=== PATIENT | male | born 1955 | race African-American/Black ===

== ENCOUNTER 2017-07-14 13:02 | Emergency (ER) | payer SELFPAY ==
[~2017-07-14] VITALS: Ht 180.3 cm; Wt 138.5 kg
[2017-07-14 13:14] VITALS: BP 181/82; PULSE 87; RESP 24; TEMP 98.2; O2SAT 96
[2017-07-14] MEDS ORDERED: TETANUS/DIPHTHERIA TOXOID ADULT 0.5 ML VIAL IM ONE (13:45)
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
[2017-07-14 13:52] LABS: AUTOMATED NEUTROPHIL # 3.3 TH/MM3 (1.8-7.7); BASOPHIL # 0.1 TH/MM3 (0-0.2); BASOPHIL % 0.9 % (0.0-2.0); EOSINOPHIL # 0.4 TH/MM3 (0-0.4); EOSINOPHIL % 5.7 % (0.0-4.0); HEMATOCRIT 42.1 % (39.0-51.0); HEMOGLOBIN 14.2 GM/DL (13.0-17.0); LYMPH % 38.1 % (9.0-44.0); LYMPHOCYTE # 2.7 TH/MM3 (1.0-4.8); MEAN CORPUSCULAR HEMOGLOBIN 29.6 PG (27.0-34.0); MEAN CORPUSCULAR HGB CONC 33.7 % (32.0-36.0); MEAN PLATELET VOLUME 8.4 FL (7.0-11.0); MONO % 8.2 % (0.0-8.0); MONOCYTE # 0.6 TH/MM3 (0-0.9); NEUT % 47.1 % (16.0-70.0); PLATELET COUNT 255 TH/MM3 (150-450); RED BLOOD COUNT 4.79 MIL/MM3 (4.50-5.90); RED CELL DISTRIBUTION WIDTH 14.5 % (11.6-17.2)
[2017-07-14 14:07] LABS: BICARBONATE 26.2 MEQ/L (21.0-32.0); CALCIUM 8.8 MG/DL (8.5-10.1); CREATININE 1.03 MG/DL (0.60-1.30)
--- NOTE | 2017-07-14 14:14 | RADRPT ---
EXAM DATE/TIME: 07/14/2017 13:49 [facility] COMPARISON: No previous studies available for comparison. INDICATIONS : Left femur pain. MEDICAL HISTORY : None. SURGICAL HISTORY : None. ENCOUNTER: Initial ACUITY: 1 week PAIN SCORE: 8/10 LOCATION: Left femur. FINDINGS: Two view examination of the left femur demonstrates no evidence of fracture or dislocation. Bony min eralization is normal. The soft tissue structures are intact. CONCLUSION: No fracture. Carrillo Hayden MD on July 14, 2017 at 14:11 Board Certified Radiologist. This report was verified electronically.
--- NOTE | 2017-07-14 14:16 | RADRPT ---
EXAM DATE/TIME: 07/14/2017 13:55 [facility] COMPARISON: No previous studies available for comparison. INDICATIONS : Left foot pain and open sore. MEDICAL HISTORY : None. SURGICAL HISTORY : None. ENCOUNTER: Initial ACUITY: 1 week PAIN SCORE: 5/10 LOCATION: Left foot. FINDINGS: Three view examination of the left foot demonstrates no dislocation, or fracture. Mild, diffuse sof t tissue prominence The tarsal bones appear intact. The interphalangeal and metatarsophalangeal join ts are intact. The calcaneus is intact with a small calcaneal spur at the plantar aponeurosis. Bony mineralization is normal. CONCLUSION: 1. Soft tissue swelling with no fracture. 2. Small calcaneal spur at the plantar aponeurosis. Carrillo Hayden MD on July 14, 2017 at 14:12 Board Certified Radiologist. This report was verified electronically.
[2017-07-14] MEDS ORDERED: SSD1CRE TOPICAL (14:25)
[2017-07-14] MEDS ORDERED: BACT800T5 PO (14:25)
[2017-07-14] MEDS ORDERED: CEPH-460 PO (14:25)
[2017-07-14] MEDS ORDERED: SULFAMETHOXAZOLE-TRIMETHOPRIM DS 800-160 MG TAB PO ONE (14:30)
[2017-07-14] MEDS ORDERED: SILVER SULFADIAZINE 1% CR 50 GM JAR TOPICAL ONE (14:30)
[2017-07-14] MEDS ORDERED: CEPHALEXIN MONOHYDRATE 500 MG CAP PO ONE (14:30)
[2017-07-14 15:01] VITALS: BP 158/79
== END 2017-07-14 15:15 | disposition home or self-care (01) ==
LOC: NEPE 13:02
DX: L03.116 Cellulitis of left lower limb (principal); S76.912A Strain of unspecified muscles, fascia and tendons at thigh level, left thigh, initial encounter; X50.1XXA Overexertion from prolonged static or awkward postures, initial encounter; Y93.55 Activity, bike riding; Z88.2 Allergy status to sulfonamides; Z23 Encounter for immunization
CPT/HCPCS: 73552; 73630; 80048; 85025; 90471; 90714